=== PATIENT | female | born 1960 | race Caucasian/White ===

== ENCOUNTER 2017-08-03 01:21 | Emergency (ER) | payer MEDICARE, BC ==
[2017-08-03] MEDS ORDERED: Sodium Chloride 0.9% 1,000 ML IV SCH (02:15)
[2017-08-03 02:29] VITALS: BP 162/61
--- NOTE | 2017-08-03 03:24 | EDM.PDOC ---
ED HPI GENERAL MEDICAL PROBLEM - General Chief Complaint: General Stated Complaint: POSSIBLE KIDNEY STONE Time Seen by Provider: 08/03/17 02:04 Source of Information: Reports: Patient History Limitations: Reports: No Limitations - History of Present Illness INITIAL COMMENTS - FREE TEXT/NARRATIVE: recurrent kidney stones; this is a 57 year old female present to ER for evaluation of flank pain. she is here to make sure the kidney stones are passing thru and not obstructing. She reports bilateral flank pain, denies any fever or chills. has been on chronic pain management and declines any medication for pain. she is requesting labs and xrays. denies any IV fluids as she has difficult to access veins. past history of recurrent kidney stones. 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(s) bilateral lower back Pain Score (Numeric/FACES): 7 - Related Data Allergies Allergy/AdvReac Type Severity Reaction Status Date / Time levofloxacin [From Levaquin] Allergy Airway Verified 08/03/17 01:33 Tightness Penicillins Allergy Cannot Verified 12/03/15 06:03 Remember Home Meds: Home Meds Aspirin [Adult Low Dose Aspirin EC] 81 mg PO DAILY 06/19/14 [History] Clopidogrel [Plavix] 75 mg PO DAILY 06/19/14 [History] Methadone HCl 20 mg PO TID 06/19/14 [History] Multivitamin [Multi-Vitamin Daily] 1 tab PO DAILY 06/19/14 [History] Omeprazole 20 mg PO DAILY 06/19/14 [History] clonazePAM [Clonazepam] 1.5 tab PO QID PRN 06/19/14 [History] fentaNYL [Fentanyl] 25 mcg TOP ASDIRECTED PRN 06/19/14 [History] predniSONE [Prednisone] 5 mg PO DAILY 06/19/14 [History] Ferrous Sulfate [Iron] 325 mg PO DAILY 12/03/15 [History] Albuterol Sulfate [Ventolin Hfa] 1 gm IH QID #1 hfa.aer.ad 12/10/15 [Rx] Inhaler, Assist Devices [Space Chamber Plus] 1 each MC DAILY #1 spacer 12/10/15 [Rx] Fluticasone/Salmeterol [Advair 250-50 Diskus] 1 puff BID 02/18/16 [History] Furosemide [Lasix] 20 mg PO DAILY 02/18/16 [History] Lisinopril 10 mg DAILY 02/18/16 [History] atorvaSTATin [Lipitor] 10 mg PO BEDTIME 02/18/16 [History] predniSONE [Prednisone] 5 mg PO ASDIRECTED 02/18/16 [History] Cefdinir 300 mg PO BID #7 capsule 02/21/16 [Rx] Doxycycline Hyclate 100 mg PO BID #7 tablet 02/21/16 [Rx] Past Medical History HEENT History: Reports: Impaired Vision Other HEENT History: retinal dystrophy Cardiovascular History: Reports: Aneurysm, Hypertension Respiratory History: Reports: Bronchitis, Recurrent, Pneumonia, Recurrent Gastrointestinal History: Reports: GERD 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: Reports: Renal Calculus 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: Musculoskeletal History: Reports: Back Pain, Chronic, Osteoporosis, RA Neurological History: Reports: CVA, Headaches, Chronic, Other (See Below) Other Neuro History: Lora Psychiatric History: Reports: Anxiety, Depression, PTSD Endocrine/Metabolic History: Reports: Osteopenia Hematologic History: Reports: Iron Deficiency Immunologic History: Reports: SLE Dermatologic History: Reports: Other (See Below) Other Dermatologic History: alopecia - Infectious Disease History Infectious Disease History: Reports: Chicken Pox, Measles, Shingles - Past Surgical History GI Surgical History: Reports: Appendectomy, Cholecystectomy Female Surgical History: Reports: D&C, Lithotripsy/ESWL, Salpingo- Oophorectomy Social & Family History - Family History Family Medical History: Unobtainable - Tobacco Use Smoking Status *Q: Never Smoker Years of Tobacco use: 20 Packs/Tins Daily: 0.5 Used Tobacco, but Quit: Yes Month Tobacco Last Used: 09/2015 Second Hand Smoke Exposure: No - Caffeine Use Caffeine Use: Reports: Soda - Alcohol Use Days Per Week of Alcohol Use: 0 - Recreational Drug Use Recreational Drug Use: No Drug Use in Last 12 Months: No Recreational Drug Use Frequency: Not Used In Over 6 Months Recreational Drug Last Use: many years ago ED ROS GENERAL - Review of Systems Review Of Systems: See Below Constitutional: Reports: No Symptoms Respiratory: Reports: No Symptoms Cardiovascular: Reports: No Symptoms GI/Abdominal: Reports: No Symptoms : Reports: Flank Pain, Hematuria Musculoskeletal: Reports: Back Pain Skin: Reports: No Symptoms ED EXAM, GENERAL - Physical Exam Exam: See Below Exam Limited By: No Limitations General Appearance: Alert, WD/WN, Anxious, Mild Distress Head: Atraumatic, Normocephalic Neck: Normal Inspection, Supple, Non-Tender, Full Range of Motion Respiratory/Chest: No Respiratory Distress, Lungs Clear, Normal Breath Sounds, No Accessory Muscle Use, Chest Non-Tender Cardiovascular: Normal Peripheral Pulses, Regular Rate, Rhythm, No Murmur GI/Abdominal: Normal Bowel Sounds, Soft, Non-Tender (Female) Exam: Deferred Rectal (Female) Exam: Deferred Back Exam: CVA Tenderness (R), CVA Tenderness (L) Extremities: Normal Inspection, Normal Range of Motion, Non-Tender, Normal Capillary Refill, No Pedal Edema Neurological: Alert, Oriented, Normal Cognition, Normal Gait, No Motor/Sensory Deficits Psychiatric: Anxious Skin Exam: Warm, Dry, Intact, Normal Color, No Rash Lymphatic: No Adenopathy Course - Vital Signs Last Recorded V/S: Last Vital Signs Temp 36.7 C 08/03/17 01:33 Pulse 75 08/03/17 01:33 Resp 20 08/03/17 01:33 BP 162/61 H 08/03/17 01:33 Pulse Ox 94 L 08/03/17 01:33 - Orders/Labs/Meds Orders: Active Orders 24 hr Category Date Time Status Kidney Stone Protocol [CT] Stat Exams 08/03/17 02:06 Taken Labs: Laboratory Tests 08/03/17 08/03/17 08/03/17 Range/Units 01:42 01:42 02:21 WBC 6.2 (4.5-11.0) K/uL RBC 4.67 (3.30-5.50) M/uL Hgb 14.1 D (12.0-15.0) g/dL Hct 44.0 (36.0-48.0) % MCV 94 (80-98) fL MCH 30 (27-31) pg MCHC 32 (32-36) % Plt Count 265 (150-400) K/uL Neut % (Auto) 45 (36-66) % Lymph % (Auto) 42 (24-44) % [place] % (Auto) 11 H (2-6) % Eos % (Auto) 3 (2-4) % Baso % (Auto) 0 (0-1) % Sodium 142 (140-148) mmol/L Potassium 3.7 (3.6-5.2) mmol/L Chloride 104 (100-108) mmol/L Carbon Dioxide 29 (21-32) mmol/L Anion Gap 9.3 (5.0-14.0) mmol/L BUN 9 (7-18) mg/dL Creatinine 1.0 (0.6-1.0) mg/dL Est Cr Clr Drug Dosing TNP Estimated GFR (MDRD) 57 L (>60) Glucose 92 (74-106) mg/dL Calcium 9.4 (8.5-10.1) mg/dL Total Bilirubin 0.5 (0.2-1.0) mg/dL AST 34 (15-37) U/L ALT 35 (12-78) U/L Alkaline Phosphatase 103 (46-116) U/L Total Protein 7.1 (6.4-8.2) g/dL Albumin 3.7 (3.4-5.0) g/dL Globulin 3.4 (2.3-3.5) g/dL Albumin/Globulin Ratio 1.1 L (1.2-2.2) Amylase 48 (25-115) U/L Lipase 95 (73-393) U/L Urine Color Red Urine Appearance Cloudy Urine pH 5.0 (4.5-8.0) Ur Specific [place] 1.015 (1.008-1.030) Urine Protein 30 H (NEGATIVE) mg/dL Urine Glucose (UA) Normal (NEGATIVE) mg/dL Urine Ketones Negative (NEGATIVE) mg/dL Urine Occult Blood Large (NEGATIVE) Urine Nitrite Negative (NEGATIVE) Urine Bilirubin Negative (NEGATIVE) Urine Urobilinogen 1 (NORMAL) mg/dL Ur Leukocyte Esterase Small (NEGATIVE) Urine RBC Packed H (0-5) Urine WBC (0-5) Meds: Medications Discontinued Medications Generic Name Dose Route Start Last Admin Trade Name Freq PRN Reason Stop Dose Admin Sodium Chloride 1,000 mls @ 999 mls/hr 08/03/17 02:15 Normal Saline IV ASDIRECTED ZOHREH - Re-Assessments/Exams Free Text/Narrative Re-Assessment/Exam: labs; cbc, cmp no acute results, urine +hematuria imaging; non-obstructing kidney stones. review results with Ms. Walker, copy of report given. She plans to make appointment with Primary Care for follow up. Departure - Departure Time of Disposition: 03:20 Disposition: Home, Self-Care 01 Condition: Good Clinical Impression: Recurrent kidney stones - Discharge Information Instructions: Kidney Stones, [id number] Referrals: PCP,None [Primary Care Provider] - Forms: ED Department Discharge Care Plan Goals: recurrent kidney stones -non-obstructing kidney stones are noted -drink plenty of water, 8 to 10 glasses of water -take medication as directed -follow up with Primary Care Provider on return to Clinic, Urgent Care or ER if symptoms worsen or not improved - Problem List & Annotations (1) Recurrent kidney stones SNOMED Code(s): 69590911 Code(s): N20.0 - CALCULUS OF KIDNEY Status: Acute Priority: High - Problem List Review Problem List Initiated/Reviewed/Updated: Yes - My Orders Last 24 Hours: My Active Orders 08/03/17 02:06 Kidney Stone Protocol [CT] Stat - Assessment/Plan Last 24 Hours: My Active Orders 08/03/17 02:06 Kidney Stone Protocol [CT] Stat Plan: recurrent kidney stones -non-obstructing kidney stones are noted -drink plenty of water, 8 to 10 glasses of water -take medication as directed -follow up with Primary Care Provider on return to Clinic, Urgent Care or ER if symptoms worsen or not improved
== END 2017-08-03 03:40 | disposition home or self-care (01) ==
LOC: JP.ED 01:21
DX: N20.2 Calculus of kidney with calculus of ureter (principal); I10 Essential (primary) hypertension; K21.9 Gastro-esophageal reflux disease without esophagitis; F32.9 Major depressive disorder, single episode, unspecified; Z87.891 Personal history of nicotine dependence; Z79.02 Long term (current) use of antithrombotics/antiplatelets; Z79.82 Long term (current) use of aspirin; Z79.899 Other long term (current) drug therapy; Z88.0 Allergy status to penicillin; Z88.1 Allergy status to other antibiotic agents
CPT/HCPCS: 36415; 74176; 80053; 81001; 82150; 83690; 85025; 99283; 99284-25

== ENCOUNTER 2019-06-09 07:18 | Emergency (ER) | payer MEDICARE, BC ==
[2019-06-09 07:42] VITALS: BP 132/76; PULSE 98
--- NOTE | 2019-06-09 08:32 | EDM.PDOC ---
ED HPI GENERAL MEDICAL PROBLEM - General Chief Complaint: Respiratory Problem Stated Complaint: TROUBLE BREATHING Time Seen by Provider: 06/09/19 08:15 Source of Information: Reports: Patient History Limitations: Reports: No Limitations - History of Present Illness INITIAL COMMENTS - FREE TEXT/NARRATIVE: 59-year-old female with a cough, worsening over the past 48 hours. She has had this before and as tended to respond to Zithromax. She does have some COPD. No fevers or chills. Onset: Gradual Duration: Day(s): (2-3 days) Associated Symptoms: Reports: Malaise. Denies: Fever/Chills Chest Pain Score (Numeric/FACES): 5 - Related Data Allergies Allergy/AdvReac Type Severity Reaction Status Date / Time levofloxacin [From Levaquin] Allergy Severe Airway Verified 06/09/19 07:40 Tightness Penicillins Allergy Cannot Verified 06/09/19 07:40 Remember Home Meds: Home Meds Aspirin [Adult Low Dose Aspirin EC] 81 mg PO DAILY 06/19/14 [History] Clopidogrel [Plavix] 75 mg PO DAILY 06/19/14 [History] Multivitamin [Multi-Vitamin Daily] 1 tab PO DAILY 06/19/14 [History] Omeprazole 20 mg PO DAILY 06/19/14 [History] clonazePAM [Clonazepam] 1.5 tab PO QID PRN 06/19/14 [History] fentaNYL [Fentanyl] 12.5 mcg TOP ASDIRECTED PRN 06/19/14 [History] Ferrous Sulfate [Iron] 325 mg PO DAILY 12/03/15 [History] Albuterol Sulfate [Ventolin Hfa] 1 gm IH QID #1 hfa.aer.ad 12/10/15 [Rx] Inhaler, Assist Devices [Space Chamber Plus] 1 each MC DAILY #1 spacer 12/10/15 [Rx] Lisinopril 10 mg DAILY 02/18/16 [History] atorvaSTATin [Lipitor] 10 mg PO BEDTIME 02/18/16 [History] predniSONE [Prednisone] 5 mg PO DAILY 02/18/16 [History] Past Medical History HEENT History: Reports: Impaired Vision Other HEENT History: retinal dystrophy Cardiovascular History: Reports: Aneurysm, Hypertension Respiratory History: Reports: Bronchitis, Recurrent, COPD, Pneumonia, Recurrent , Other (See Below) Other Respiratory History: emphazema Gastrointestinal History: Reports: GERD 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: 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: Musculoskeletal History: Reports: Back Pain, Chronic, Osteoporosis, RA Neurological History: Reports: Cerebral Aneurysms, CVA, Headaches, Chronic, Other (See Below) Other Neuro History: Lora Psychiatric History: Reports: Anxiety, Depression, PTSD Endocrine/Metabolic History: Reports: Osteopenia Hematologic History: Reports: Iron Deficiency Immunologic History: Reports: SLE Dermatologic History: Reports: Other (See Below) Other Dermatologic History: alopecia - Infectious Disease History Infectious Disease History: Reports: Chicken Pox, Measles, Shingles - Past Surgical History GI Surgical History: Reports: Appendectomy, Cholecystectomy Female Surgical History: Reports: D&C, Lithotripsy/ESWL, Salpingo- Oophorectomy Social & Family History - Family History Family Medical History: Unobtainable - Tobacco Use Smoking Status *Q: Never Smoker Second Hand Smoke Exposure: No - Caffeine Use Caffeine Use: Reports: Soda - Recreational Drug Use Recreational Drug Use: No ED ROS GENERAL - Review of Systems Review Of Systems: See Below Constitutional: Reports: Malaise. Denies: Fever, Chills HEENT: Denies: Throat Pain Respiratory: Reports: Cough, Sputum. Denies: Shortness of Breath (Chronic shortness of breath nothing more than her baseline) Cardiovascular: Reports: Other (Some pain with coughing) Skin: Reports: No Symptoms Neurological: Denies: Headache Psychiatric: Reports: No Symptoms ED EXAM, GENERAL - Physical Exam Exam: See Below Exam Limited By: No Limitations General Appearance: Alert, No Apparent Distress Throat/Mouth: Normal Inspection Head: Atraumatic Respiratory/Chest: No Respiratory Distress, Other (Lungs are clear but does have some decreased breath sounds at the bases) Cardiovascular: Regular Rate, Rhythm Extremities: Other (Extremities are very thin, somewhat cachectic) Neurological: Alert, Oriented Course - Vital Signs Last Recorded V/S: Last Vital Signs Temp 95.6 F 06/09/19 07:51 Pulse 98 06/09/19 07:51 Resp 17 06/09/19 07:51 BP 132/76 06/09/19 07:51 Pulse Ox 92 L 06/09/19 07:51 - Re-Assessments/Exams Free Text/Narrative Re-Assessment/Exam: 06/09/19 08:31 A Zithromax was offered and will be filled. She'll recheck in 3-5 days if not improving while on the antibiotics. Departure - Departure Time of Disposition: 08:43 Disposition: Home, Self-Care 01 Condition: Good Clinical Impression: Bronchitis - Discharge Information Instructions: Acute Bronchitis, Adult, [id number] Referrals: PCP,None [Primary Care Provider] - Forms: ED Department Discharge Care Plan Goals: Continue your current medications, takes Zithromax as prescribed and consider rechecking in 3-5 days if not improving satisfactorily. Return anytime if worsening despite treatment.
== END 2019-06-09 08:43 | disposition home or self-care (01) ==
LOC: JP.ED 07:18
DX: J40 Bronchitis, not specified as acute or chronic (principal); I10 Essential (primary) hypertension; K21.9 Gastro-esophageal reflux disease without esophagitis; Z79.899 Other long term (current) drug therapy; M06.9 Rheumatoid arthritis, unspecified; Z90.49 Acquired absence of other specified parts of digestive tract; Z79.82 Long term (current) use of aspirin; Z88.0 Allergy status to penicillin; Z88.1 Allergy status to other antibiotic agents
CPT/HCPCS: 99284